=== PATIENT | female | born 1960 | race Caucasian/White ===

== ENCOUNTER 2024-03-01 10:49 | Inpatient (IN) | payer SELFPAY ==
[2024-03-01] VITALS (8 sets, daily range): BP systolic 115–148; BP diastolic 40–72
[~2024-03-01] VITALS: Wt 93.4 kg
[~2024-03-01 10:49] MED LIST: CIPRO500 MG PO; CIPROFLOXACIN500 MG PO; VICODIN 5/500 505 MG PO; VICODIN 500 MG-1 TAB PO
[2024-03-01] MEDS ORDERED: FAMOTIDINE 50 ML IV ONE ×2 (11:00→11:40)
[2024-03-01] MEDS ORDERED: Ketorolac Tromethamine 15 MG/ML VIAL IV ONE (11:00)
[2024-03-01] MEDS ORDERED: Metoclopramide Hydrochloride 10 MG/2 ML VIAL IV ONE (11:00)
[2024-03-01] MEDS ORDERED: diphenhydrAMINE hydrochloride 50 MG/ML VIAL IV ONE (11:00)
[2024-03-01] MEDS ORDERED: SODIUM CHLORIDE 0.9% 1,000 ML IV ONE (11:00)
[2024-03-01 11:15] LABS: HEMATOCRIT 23.9 % (37.0-47.0); MEAN CORPUSCULAR HGB 23.7 pg (27.0-31.0); MEAN CORPUSCULAR HGB CONC 27.6 g/dl (33.0-37.0); MEAN PLATELET VOLUME 10.1 fl (9.6-12.3); PLATELET COUNT AUTOMATED 178 10*3/uL (130-400); RED BLOOD COUNT 2.78 10*6/uL (4.10-5.10); RED CELL DISTRI WIDTH 25.4 % (0-14.5)
[2024-03-01 11:18] LABS: MANUAL DIFF REFLEX YES
[2024-03-01 11:38] LABS: PLATELET SUFFICIENCY NORMAL (NORMAL); TOTAL CELLS COUNTED 100 #CELLS
[2024-03-01] MEDS ORDERED: Pantoprazole Sodium 40 MG VIAL IV ONE (11:40)
[2024-03-01 12:12] LABS: BUN 20 mg/dl (9-23); CHLORIDE 107 mmol/L (98-107); POTASSIUM 3.7 mmol/L (3.4-5.1)
[2024-03-01 12:19] LABS: ACT PARTIAL THROMBO TIME 27.7 SECONDS (20.0-32.1)
[2024-03-01] MEDS ORDERED: SODIUM CHLORIDE 0.9% 500 ML IV ONE (13:05)
[2024-03-01] MEDS ORDERED: SODIUM CHLORIDE 0.9% 0 ML IV ONE (13:10)
[2024-03-01] MEDS ORDERED: Magnesium Hydroxide 30 ML UDC PO PRN (17:45)
[2024-03-01] MEDS ORDERED: BISACODYL 10 MG SUPP R PRN (17:45)
[2024-03-01] MEDS ORDERED: BISACODYL 5 MG TAB PO PRN (17:45)
[2024-03-01] MEDS ORDERED: Ondansetron Hydrochloride 4 MG/2 ML VIAL IV PRN (17:45)
[2024-03-01] MEDS ORDERED: MORPHINE Sulfate 2 MG/ML SYR IV PRN (17:50)
[2024-03-01] MEDS ORDERED: Pantoprazole Sodium 40 MG VIAL IV SCH (18:00)
[2024-03-01] MEDS ORDERED: FUROSEMIDE 40 MG/4 ML VIAL IV ONE (18:05)
[2024-03-01] MEDS ORDERED: Ceftriaxone Sodium 2 GM in SYRINGE INFUSION 20 ML IV SCH (18:30)
[2024-03-01 19:05] LABS: ALKALINE PHOSPHATASE 91 U/L (46-116); BUN 21 mg/dl (9-23); CHLORIDE 108 mmol/L (98-107); POTASSIUM 3.7 mmol/L (3.4-5.1); SGPT/ALT 21 U/L (5-49); TOTAL PROTEIN 6.6 gm/dL (6.0-8.0)
[2024-03-01] MEDS ORDERED: SUCRALFATE 1 GM TAB PO SCH (22:00)
[2024-03-02] MEDS ORDERED: SPIRONOLACTONE 100 MG TAB PO SCH (10:00)
[2024-03-02] MEDS ORDERED: FUROSEMIDE 40 MG/4 ML VIAL IV SCH (10:00)
== END 2024-03-01 20:26 | disposition short-term general hospital (02) | DRG 872 ==
LOC: ED 10:49 → EDHOLD 17:14
PROVIDERS: Emergency Medicine; Student in an Organized Health Care Education/Training Program; ADMIT Internal Medicine; ATTEND Internal Medicine
PROC: 30233N1 Transfusion of Nonautologous Red Blood Cells into Peripheral Vein, Percutaneous Approach (ICD-10-PCS; principal; 2024-03-01)
DX: A41.9 Sepsis, unspecified organism (principal); K76.6 Portal hypertension; R18.8 Other ascites; K74.60 Unspecified cirrhosis of liver; D64.9 Anemia, unspecified; K52.9 Noninfective gastroenteritis and colitis, unspecified; K80.20 Calculus of gallbladder without cholecystitis without obstruction; R73.9 Hyperglycemia, unspecified; Z88.8 Allergy status to other drugs, medicaments and biological substances; Z79.899 Other long term (current) drug therapy; Z79.01 Long term (current) use of anticoagulants; Z79.2 Long term (current) use of antibiotics; Z83.3 Family history of diabetes mellitus; Z82.49 Family history of ischemic heart disease and other diseases of the circulatory system

== ENCOUNTER → 2024-03-22 | Outpatient (CLI) | payer SELFPAY ==
[~2024-03-22] MED LIST changes: +BISACODYL10 MG R; +FLEET ENEMA 13133 ML R; +K-TAB20 MEQ PO; +KRISTALOSE20 GM PO; +LASIX40 MG PO; +MILK OF MA400 MG/51 PO; +OLANZAPINE5 MG PO; +PANTOPRAZOLE SO40 MG PO; +POTASSIUM CHLO20 ME3 PO; +SECURA PROTECTI50 GM T; +SODIUM CHLORIDE 0.9% 500 ML IV ONE; +XIFAXAN550 MG PO; +ZYPREXA2.5 MG PO
[2024-03-22 13:35] VITALS: BP 115/47
[2024-03-22 14:05] VITALS: BP 107/45
[2024-03-22 14:33] VITALS: BP 104/47
[2024-03-22 15:04] VITALS: BP 103/52
[2024-03-22 15:31] VITALS: BP 103/46
[2024-03-22 16:15] VITALS: BP 111/39
[2024-03-22 16:47] LABS: BASO % 0.7 % (0.0-1.0); EOS # 0.2 10*3/uL (0.0-0.4); EOS % 3.5 % (1.0-4.0); HEMATOCRIT 27.1 % (37.0-47.0); MEAN CELL VOLUME 89.4 fl (81.0-99.0); MEAN CORPUSCULAR HGB 28.7 pg (27.0-31.0); MEAN CORPUSCULAR HGB CONC 32.1 g/dl (33.0-37.0); MEAN PLATELET VOLUME 11.3 fl (9.6-12.3); MONO # 0.6 10*3/uL (0.1-1.0); NEUT # 2.6 10*3/uL (2.3-7.9); NEUT % 60.7 % (47.0-73.0); RED BLOOD COUNT 3.03 10*6/uL (4.10-5.10); RED CELL DISTRI WIDTH 25.5 % (0-14.5); WHITE BLOOD COUNT 4.3 10*3/uL (4.8-10.8)
[2024-03-22 16:49] LABS: PLATELET COUNT AUTOMATED 171 10*3/uL (130-400)
== END | disposition home or self-care (01) ==
LOC: TRNFUSION 12:00
PROVIDERS: ATTEND Internal Medicine
DX: D64.9 Anemia, unspecified (principal)

== ENCOUNTER 2024-03-26 22:43 | Inpatient (IN) | payer SELFPAY ==
[~2024-03-26] VITALS: Wt 99.3 kg
[~2024-03-26 22:43] MED LIST changes: -FLEET ENEMA 13133 ML R; -K-TAB20 MEQ PO; -LASIX40 MG PO; -MILK OF MA400 MG/51 PO; -SECURA PROTECTI50 GM T; -SODIUM CHLORIDE 0.9% 500 ML IV ONE; -ZYPREXA2.5 MG PO
[2024-03-26 22:51] VITALS: BP 106/48; BP 97/29
[2024-03-26] MEDS ORDERED: Magnesium Hydroxide 30 ML UDC PO PRN (23:20)
[2024-03-26] MEDS ORDERED: Ondansetron Hydrochloride 4 MG/2 ML VIAL IV PRN (23:20)
[2024-03-26] MEDS ORDERED: BISACODYL 10 MG SUPP R PRN (23:20)
[2024-03-26] MEDS ORDERED: BISACODYL 5 MG TAB PO PRN (23:20)
[2024-03-26] MEDS ORDERED: MORPHINE Sulfate 2 MG/ML SYR IV PRN (23:20)
[2024-03-26] MEDS ORDERED: IOHEXOL 300 MG/ML 100 ML VIAL IV ONE (23:30)
[2024-03-27] MEDS ORDERED: BARIUM SULFATE 2% 450 ML BOT PO SCH
[2024-03-27] MEDS ORDERED: cefTRIAXone Sodium 2 GM in SYRINGE INFUSION 20 ML IV SCH ×2 (00:40→22:00)
[2024-03-27] MEDS ORDERED: AZITHROMYCIN 250 ML IV SCH (02:05)
[2024-03-27 02:08] LABS: BILIRUBIN Negative (Negative); BLOOD Negative (Negative); CLARITY Clear (Clear); COLOR Yellow (Yellow); GLUCOSE Negative (Negative); KETONE Negative (Negative); LEUKO ESTERASE Negative (Negative); NITRITE Positive (Negative); SPECIFIC GRAVITY 1.015 (1.001-1.030); UROBILINOGEN 0.2 E.U./dl (0.0-1.0)
[2024-03-27 02:56] LABS: BACTERIA 3+; EPITHELIAL CELLS 31-40
[2024-03-27] MEDS ORDERED: FLEET ENEMA 13133 ML R (03:18)
[2024-03-27] MEDS ORDERED: LASIX40 MG PO (03:19)
[2024-03-27] MEDS ORDERED: MILK OF MA400 MG/51 PO (03:20)
[2024-03-27] MEDS ORDERED: ZYPREXA2.5 MG PO (03:22)
[2024-03-27] MEDS ORDERED: K-TAB20 MEQ PO (03:23)
[2024-03-27] MEDS ORDERED: SECURA PROTECTI50 GM T (03:25)
[2024-03-27 05:37] LABS: ALKALINE PHOSPHATASE 183 U/L (46-116); BUN 13 mg/dl (9-23); CHLORIDE 102 mmol/L (98-107); CHOLESTEROL 82 mg/dL (<200); FREE T4 0.98 ng/dl (0.89-1.76); POTASSIUM 3.6 mmol/L (3.4-5.1); SGPT/ALT 43 U/L (5-49); TOTAL PROTEIN 5.5 gm/dL (6.0-8.0); TRIGLYCERIDES 65 mg/dl (<150)
[2024-03-27 05:40] LABS: LDL CHOLESTEROL 56 mg/dL (9-159)
[2024-03-27] MEDS ORDERED: Pantoprazole Sodium 40 MG TAB PO SCH (06:00)
[2024-03-27 06:05] LABS: HEMATOCRIT 23.2 % (37.0-47.0); MEAN CELL VOLUME 91.7 fl (81.0-99.0); MEAN CORPUSCULAR HGB 29.2 pg (27.0-31.0); MEAN CORPUSCULAR HGB CONC 31.9 g/dl (33.0-37.0); PLATELET COUNT AUTOMATED 98 10*3/uL (130-400); RED BLOOD COUNT 2.53 10*6/uL (4.10-5.10); RED CELL DISTRI WIDTH 26.3 % (0-14.5)
[2024-03-27 06:07] LABS: MANUAL DIFF REFLEX YES
[2024-03-27 06:29] LABS: ACT PARTIAL THROMBO TIME 42.4 SECONDS (20.0-32.1)
[2024-03-27 06:58] VITALS: BP 108/53
[2024-03-27] MEDS ORDERED: LACTULOSE 20 GM/30 ML UDC PO SCH (07:00)
[2024-03-27 08:00] VITALS: BP 99/44
[2024-03-27 08:29] LABS: BASOPHILS 2 % (0-1); TOTAL CELLS COUNTED 100 #CELLS
[2024-03-27 08:34] LABS: PLATELET SUFFICIENCY LOW (NORMAL)
[2024-03-27 08:35] LABS: BURR CELLS MODERATE
[2024-03-27] MEDS ORDERED: Enoxaparin Sodium 40 MG/0.4 ML SYR SC SCH (10:00)
[2024-03-27] MEDS ORDERED: FUROSEMIDE 40 MG TAB PO SCH (10:00)
[2024-03-27] MEDS ORDERED: RIFAXIMIN 550 MG TAB PO SCH (10:00)
[2024-03-27] MEDS ORDERED: OLANZapine 2.5 MG TAB PO SCH (10:00)
[2024-03-27 12:00] VITALS: BP 122/56
[2024-03-27] MEDS ORDERED: Ampicillin Sodium/Sulbactam 3 GM in SODIUM CHLORIDE 0.9% 100 ML IV SCH (12:00)
[2024-03-27 16:00] VITALS: BP 115/53
[2024-03-27 20:00] VITALS: BP 119/52
[2024-03-28] VITALS: BP 117/52
[2024-03-28 07:56] LABS: HEMATOCRIT 24.4 % (37.0-47.0); MANUAL DIFF REFLEX YES; MEAN CELL VOLUME 91.7 fl (81.0-99.0); MEAN CORPUSCULAR HGB 28.9 pg (27.0-31.0); MEAN CORPUSCULAR HGB CONC 31.6 g/dl (33.0-37.0); MEAN PLATELET VOLUME 10.7 fl (9.6-12.3); PLATELET COUNT AUTOMATED 97 10*3/uL (130-400); RED BLOOD COUNT 2.66 10*6/uL (4.10-5.10); RED CELL DISTRI WIDTH 26.4 % (0-14.5); WHITE BLOOD COUNT 2.2 10*3/uL (4.8-10.8)
[2024-03-28 08:00] VITALS: BP 117/54
[2024-03-28 08:17] LABS: ALKALINE PHOSPHATASE 209 U/L (46-116); BUN 12 mg/dl (9-23); CHLORIDE 103 mmol/L (98-107); POTASSIUM 3.3 mmol/L (3.4-5.1); SGPT/ALT 43 U/L (5-49); TOTAL PROTEIN 5.5 gm/dL (6.0-8.0)
[2024-03-28 08:35] LABS: ATYPICAL LYMPHS 1 % (0-0); BASOPHILS 1 % (0-1); BURR CELLS MODERATE; OVALOCYTES FEW; PLATELET SUFFICIENCY LOW (NORMAL); POLYCHROMASIA SLIGHT; TARGET CELLS FEW; TOTAL CELLS COUNTED 100 #CELLS
[2024-03-28 10:07] LABS: HEMOGOLBIN A1C 4.9 % (4.8-5.6)
[2024-03-28] MEDS ORDERED: AZITHROMYCIN 250 ML IV SCH (14:00)
[2024-03-28] MEDS ORDERED: metroNIDAZOLE 500 MG TAB PO SCH (14:00)
[2024-03-28] MEDS ORDERED: FOAM BANDAGE 5X5 T ONE (16:08)
[2024-03-28 16:16] VITALS: BP 109/54
[2024-03-29] MEDS ORDERED: FUROSEMIDE 20 MG/2 ML VIAL IV SCH (10:00)
== END 2024-03-28 17:47 | disposition short-term general hospital (02) | DRG 871 ==
LOC: ED 22:43 → EDHOLD 23:01 → 4E 23:01 → EDHOLD 23:34 → 4E 03-27 11:33
PROVIDERS: ADMIT Internal Medicine; ATTEND Internal Medicine
DX: A41.9 Sepsis, unspecified organism (principal); J69.0 Pneumonitis due to inhalation of food and vomit; D61.818 Other pancytopenia; E87.1 Hypo-osmolality and hyponatremia; N39.0 Urinary tract infection, site not specified; E87.20 Acidosis, unspecified; R18.8 Other ascites; K80.00 Calculus of gallbladder with acute cholecystitis without obstruction; J90 Pleural effusion, not elsewhere classified; K76.6 Portal hypertension; E87.6 Hypokalemia; K74.60 Unspecified cirrhosis of liver; R65.20 Severe sepsis without septic shock; Z66 Do not resuscitate; R73.9 Hyperglycemia, unspecified; R16.1 Splenomegaly, not elsewhere classified; S80.821A Blister (nonthermal), right lower leg, initial encounter; N20.0 Calculus of kidney; K80.20 Calculus of gallbladder without cholecystitis without obstruction; S80.822A Blister (nonthermal), left lower leg, initial encounter; Z79.899 Other long term (current) drug therapy; Z79.01 Long term (current) use of anticoagulants; Z79.2 Long term (current) use of antibiotics; Z83.3 Family history of diabetes mellitus; Z82.49 Family history of ischemic heart disease and other diseases of the circulatory system; Z85.048 Personal history of other malignant neoplasm of rectum, rectosigmoid junction, and anus; X58.XXXA Exposure to other specified factors, initial encounter; Y93.89 Activity, other specified; Y92.89 Other specified places as the place of occurrence of the external cause; Y99.8 Other external cause status